=== PATIENT | male | born 1970 | race Caucasian/White ===

== ENCOUNTER 2017-07-10 07:51 | Outpatient (CLI) | payer BC ==
[~2017-07-10] VITALS: Ht 170.2 cm; Wt 72.7 kg
[2017-07-10] MEDS ORDERED: OXYCODONE HCL5 MG PO (08:18)
[2017-07-10] MEDS ORDERED: SYMBICORT 16010.2 GM INH (08:19)
[2017-07-10] MEDS ORDERED: VENTOLIN HFA18 GM INH (08:20)
[2017-07-10 08:37] VITALS: BP 121/78; Ht 170.2 cm; Wt 72.7 kg
[2017-07-10 08:43] LABS: BASOPHILS 0.4 % (0-2); EOSINOPHILS 2.5 % (0-7); HEMATOCRIT 40.4 % (42.0-54.0); HEMOGLOBIN 13.9 g/dL (13.5-17.5); IMMATURE GRANULOCYTES 0.2 % (0-5); LYMPHOCYTES 46.4 % (15-50); MCH 30.2 pg (26.0-34.0); MCHC 34.4 g/dL (31.0-37.0); MCV 87.8 fL (80.0-100.0); MEAN PLATELET VOLUME 10.3 fL (7.4-10.4); MONOCYTES 4.6 % (2-11); NEUTROPHILS 45.9 % (40-80); PLATELET COUNT 208 10x3/uL (130-400); RDW 13.8 % (11.5-14.5)
[2017-07-10 08:56] LABS: APTT 25.2 SECONDS (22.8-39.4); INR 0.89 (0.85-1.17); PROTIME 11.9 SECONDS (11.6-15.0)
[2017-07-10 08:58] LABS: CALC OSMOLALITY 274 mosm/kg (275-300); CALCIUM 8.7 mg/dL (8.5-10.1); CARBON DIOXIDE 27.8 mmol/L (21.0-32.0); CHLORIDE - SERUM 101 mmol/L (98-107); CREATININE - SERUM 0.7 mg/dL (0.6-1.3); GLUCOSE 93 mg/dL (74-106); POTASSIUM - SERUM 4.3 mmol/L (3.5-5.1); SODIUM 137 mmol/L (136-145); UREA NITROGEN 15 mg/dL (7-18); eGFR NON AFRICAN AMERICAN > 90 mL/min (90-120)
--- NOTE | 2017-07-10 20:12 | NUR ---
1140--ALL VITAL SIGNS CHARTED ON POST PROCEDURE VITAL SIGN SHEET ON CHART. KHUSHBU GUADARRAMA
--- NOTE | 2017-07-10 20:12 | NUR ---
1558--PERCOCET 10/325MG GIVEN PO FOR PAIN. KHUSHBU RN
--- NOTE | 2017-07-10 20:13 | NUR ---
1615--IV DC'D, PT UP TO DRESS AT THIS TIME. KHUSHBU GUADARRAMA 1630--DISCHARGE INSTRUCTIONS GIVEN, PT VERBALIZES UNDERSTANDING. PT OFF UNIT VIA WC. KHUSHBU GUADARRAMA
== END 2017-07-10 16:30 | disposition home or self-care (01) ==
LOC: D.OPS 07:51 → D.RAD 10:00 → D.SP 10:00 → D.RAD 10:30 → D.OPS 16:30
PROVIDERS: Radiology Diagnostic Radiology
DX: C64.2 Malignant neoplasm of left kidney, except renal pelvis (principal); Z01.812 Encounter for preprocedural laboratory examination

== ENCOUNTER 2017-12-14 11:10 | Outpatient (CLI) | payer BC ==
[~2017-12-14] VITALS: Ht 170.2 cm; Wt 75.0 kg
--- NOTE | ~2017-12-14 | HEMODYNAMI ---
PATIENT:TIANA MURRIETA MEDICAL RECORD: [id number] : 68 LOCATION:[facility] ADMISSION DATE: 12/14/17 Generatedon:12/14/201712:50 Patient name: TIANA MURRIETA Patient #: [id number] SSN: : 1 Date of study: 12/14/2017 Page: Of Hemodynamic Procedure Report Patient Data Patient Demographics Procedure consent was obtained First Name: TIANA Gender: Male Last Name: : 1970 [facility] Initial: O Age: 47 year(s) Patient #: [id number] Race: Unknown Additional ID: [id number] Contact details [address]: [address] [place] [address] State: [place] City: [place] Zip code: [address] Admission Admission Data Admission Date: 12/14/2017 Admission Time: 11:10 Lab Results Lab Result Date: 12/14/2017 Lab Result Time: 0:00 Biochemistry Name Units Result Min Max BUN mg/dl 19 --(----)*- 7 18 Creatinine mg/dl 0.8 --(-*--)-- 0.6 1.3 CBC Name Units Result Min Max Hemoglobin g/dl 16.1 --(--*-)-- 13.5 17.5 Procedure Procedure Types Cath Procedure Diagnostic Procedure [facility] w/Coronaries Miscellaneous Procedures Moderate Sedation up to 30 minutes Procedure Description Procedure Date Procedure Date: 12/14/2017 Procedure Start Time: 12:31 Procedure End Time: 12:44 Procedure Staff Name Function Jasmeet Benito MD Performing Physician Kaela Esteban RT Monitor Tiffanie Parikh RT Scrub Navid Joya RN Nurse Rafael Mckeon RN Admissions Assistant Procedure Data Cath Procedure Fluoroscopy Diagnostic fluoroscopy Total fluoroscopy Time: 2 time: 2 min min Diagnostic fluoroscopy Total fluoroscopy dose: 376 dose: 376 mGy mGy Contrast Material Contrast Material Type Amount (ml) Isovue 300 64 Entry Location Entry Primary Successful Side Size Upsize Upsize Entry Closure Succes sful Closure Location (Fr) 1 (Fr) 2 (Fr) Remarks Device Remarks Femoral Right 5 Fr Exoseal artery Estimated blood loss: 5 ml Diagnostic catheters Device Type Used For End Catheter Placement MULTIPACK JL 4.0 5Fr Multi-vessel catheter Angiography MULTIPACK 3DRC 5Fr Right Coronary catheter Angiography MULTIPACK Pigtail 5 Fr LV Angiography catheter Procedure Complications No complications Procedure Medications Medication Administration Route Dosage Oxygen NC 2 l/min Lidocaine 2% added to field 20 Heparin Flush Bag added to field 2 bags (1000units/500ml NS) 0.9% NaCl I.V. 100 ml/hr Pepcid I.V. 20 mg Versed I.V. 2 mg Fentanyl I.V. 100 mcg Versed I.V. 1 mg Fentanyl I.V. 50 mcg Versed I.V. 1 mg Fentanyl I.V. 50 mcg Hemodynamics Rest HGB: 16.1 (g/dl) Heart Rate: 55 (bpm) Pressure Samples Time Site Value (mmHg) Purpose Heart Use Rate(bpm) 12:41 LV 120/4,18 Snapshot 68 12:42 AO 125/68(94) Pullback 67 12:42 LV 129/8,28 Pullback 67 Gradients Valve Time Site 1 Site 2 Mean SEP/DFP Peak To Heart Use (mmHg) (sec/min) Peak Rate (mmHg) (bpm) Aortic 12:42 LV AO 8 17 4 67 129/8,28 125/68(94) Calculations Valve P-P Mean Valve Index Valve Source Name Gradient Area Flow (cm2) Aortic 4 8 4 8 Snapshots Pre Cath Intra NCS Post Cath Vital Signs Time Heart Resp SPO2 etCO2 NIBP (mmHg) Rhythm Pain Sedation Rate (ipm) (%) (mmHg) Status Level (bpm) 12:09:46 66 16 98 0 134/81(114) NSR 0 (11) 10(A) , No pain 12:14:33 62 17 100 0 123/68(88) NSR 0 (11) 10(A) , No pain 12:19:20 61 17 100 0 120/64(80) NSR 0 (11) 10(A) , No pain 12:24:43 74 15 100 0 120/76(93) NSR 0 (11) 10(A) , No pain 12:29:30 66 16 96 0 115/62(83) NSR 0 (11) 10(A) , No pain 12:34:13 65 15 96 0 120/70(92) NSR 0 (11) 10(A) , No pain 12:39:00 66 17 96 0 118/68(100) NSR 0 (11) 9(A) , No pain 12:43:44 66 17 95 0 122/62(94) NSR 0 (11) 10(A) , No pain Medications Time Medication Route Dose Verified Delivered Reason Notes Effe ctiveness by by 12:19:38 Oxygen NC 2 Jasmeet Buffie used for l/min Thong Joya RN procedure 12:20:30 Lidocaine 2% added 20ml Jasmeet Jasmeet for local to vial Thong Benito MD anesthetic field 12:20:36 Heparin Flush added 2 Jamseet Jasmeet used for Bag to bags Thong Benito MD procedure (1000units/500ml field NS) 12:20:45 0.9% NaCl I.V. 100 Jasmeet Buffie Per ml/hr Thong Joya RN physician 12:27:59 Pepcid I.V. 20 mg Jasmeet Buffie Per Thong Joya RN physician 12:30:26 Versed I.V. 2 mg Jasmeet Buffie for Thong Joya RN sedation 12:30:32 Fentanyl I.V. 100 Jasmeet Buffie for mcg Thong Joya RN sedation 12:36:04 Versed I.V. 1 mg Jasmeet Buffie for Thong Joya RN sedation 12:36:09 Fentanyl I.V. 50 Jasmeet Buffie for laci Joya RN sedation 12:38:55 Versed I.V. 1 mg Jasmeet Buffie for Thong Joya RN sedation 12:38:59 Fentanyl I.V. 50 Jasmeet Buffie for mcg Thong Joya RN sedation Procedure Log Time Note 11:59:34 Rafael Mckeon RN sent for patient. Start room use. 11:59:35 Time tracking: Regular hours 11:59:38 Plan of Care:Hemodynamics will remain stable., Cardiac rhythm will remain stable., Comfort level will be maintained., Respiratory function will remain adequate., Patient/ family verbilizes understanding of procedure., Procedure tolerated without complication., Recovers from procedure without complications.. 12:05:40 Patient received from Pre/Post Procedure Room to [facility] 2 Alert and oriented. Tansferred to table in Supine position. 12:05:41 Warm blankets applied, and max hugger turned on for patient comfort. 12:05:42 Correct patient and procedure confirmed by team. 12:05:47 Signed procedure consent form obtained from patient. 12:06:02 ECG and BP/O2 sat monitors applied to patient. 12:08:33 Vital chart was started 12:10:22 Full Disclosure recording started 12:11:55 Baseline sample Acquired. 12:11:59 Rhythm: sinus rhythm 12:13:23 H&P Date Dictated: 12/11/2017 Within 30 days and on chart., H&P Addendum completed by physician on day of procedure. (MUST COMPLETE FOR ALL OUTPATIENTS). 12:14:13 Pre-procedure instructions explained to patient. 12:14:15 Pre-op teaching completed and patient verbalized understanding. 12:14:16 Family in waiting room. 12:14:17 Patient NPO since Midnight. 12:14:20 Is the patient allergic to Iodine/contrast media? No. 12:14:22 Was the patient premedicated? No 12:14:23 Is patient on blood thinner?No 12:14:25 Patient diabetic? No. 12:14:28 Previous problem with sedation/anesthesia? No ? 12:14:30 Snore? Yes 12:14:31 Sleep apnea? No 12:14:32 Deviated septum? No 12:14:32 Opens mouth fully? Yes 12:14:33 Sticks out tongue? Yes 12:14:37 Airway obstruction? Yes copd 12:14:41 Dentures? Yes in tight 12:14:46 Pre procedure: right dorsailis pedis pulse 2+ Normal; easily identifiable; not easily obliterated 12:14:48 Pre procedure: left dorsailis pedis pulse 2+ Normal; easily identifiable; not easily obliterated 12:14:50 Patient pain scale 0/10 ?. 12:14:55 IV patent on arrival in left forearm with 0.9% NaCl at [facility]. 12:16:21 Lab Result : BUN 19 mg/dl 12:16:21 Lab Result : Hemoglobin 16.1 g/dl 12:16:21 Lab Result : Creatinine 0.8 mg/dl 12:16:25 Lab results completed and on chart. 12:16:28 Right groin area was prepped with chlora-prep and draped in sterile fashion 12:16:29 Alarms reviewed by R. N. 12:16:30 Sharps counted by scrub and verified by R.N. 12:19:38 Oxygen 2 l/min NC was administered by Navid Joya RN; used for procedure; 12:20:30 Lidocaine 2% 20ml vial added to field was administered by Jasmeet Benito MD; for local anesthetic; 12:20:36 Heparin Flush Bag (1000units/500ml NS) 2 bags added to field was administered by Jasmeet Benito MD; used for procedure; 12:20:45 0.9% NaCl 100 ml/hr I.V. was administered by Navid Joya RN; Per physician; 12:23:12 Zero performed for pressure channel P1 12:23:18 Zero performed for pressure channel P1 12::25 Zero performed for pressure channel P1 12::40 Physician arrived 12::41 --------ALL STOP TIME OUT------ 12::41 Final Timeout: patient, procedure, and site verified with staff and physician. All members of the team are in agreement. 12:23:43 Right groin site verified by team. 12:23:46 Physical assessment completed. ASA score P 2 - A patient with mild systemic disease as per Jasmeet Benito MD. 12:23:50 Sedation plan: IV Moderate Sedation Medication:Versed, Fentanyl 12:24:06 Use device set Femoral Dx 12:24:07 ACIST Syringe (79938) opened to sterile field. 12:24:08 Bag Decanter (2002S) opened to sterile field. 12:24:08 Medline Cath Pack ([id number]) opened to sterile field. 12:24:09 SHEATH 5FR Romney ([id number]) opened to sterile field. 12:24:11 ACIST Hand Control (84064) opened to sterile field. 12:24:12 ACIST Manifold (53097) opened to sterile field. 12:24:12 DIAGNOSTIC Multipack 5Fr catheter set (CX7988) opened to sterile field. 12:24:13 Tegaderm 4 x 4 (1626W) opened to sterile field. 12:27:00 Zero performed for pressure channel P1 12:27:59 Pepcid 20 mg I.V. was administered by Navid Joya RN; Per physician; 12:30:26 Versed 2 mg I.V. was administered by Navid Joya RN; for sedation; 12:30:32 Fentanyl 100 mcg I.V. was administered by Navid Joya RN; for sedation; 12:31:09 Procedure started. 12:31:12 Local anesthetic to right femoral artery with Lidocaine 2% by Jasmeet Benito MD.INITIAL ACCESS ONLY 12:31:22 A 5 Fr sheath was inserted into the Right Femoral artery 12:31:51 Baseline sample Acquired. 12:36:04 Versed 1 mg I.V. was administered by Navid Joya RN; for sedation; 12:36:09 Fentanyl 50 mcg I.V. was administered by Navid Joya RN; for sedation; 12:36:24 A MULTIPACK JL 4.0 5Fr catheter was advanced over the wire and used for Multi-vessel Angiography. 12:36:50 DIAGNOSTIC WIRE .035 260cm J wire (838264) opened to sterile field. 12:37:48 LCA angiography performed. 12:37:51 Injector settings: Ml/sec: 3, Volume: 6, 12:38:50 Catheter removed. 12:38:55 Versed 1 mg I.V. was administered by Navid Joya RN; for sedation; 12:38:57 A MULTIPACK 3DRC 5Fr catheter was advanced over the wire and used for Right Coronary Angiography. 12:38:59 Fentanyl 50 mcg I.V. was administered by Navid Joya RN; for sedation; 12:39:48 RCA angiography performed. 12:39:51 Injector settings: Ml/sec: 3, Volume: 6, 12:40:08 Catheter removed. 12:40:27 A MULTIPACK Pigtail 5 Fr catheter was advanced over the wire and used for LV Angiography. 12:41:45 LV hemodynamics recorded. 12:41:46 LV gram done using [place] 12:41:49 Injector settings: Ml/sec: 5, Volume: 15, 12:42:38 EF : 50 % 12:42:53 Catheter removed. 12:42:56 EXOSEAL 5Fr (EX500) opened to sterile field. 12:43:17 Sheath removed intact; hemostasis achieved with Exoseal to the Right Femoral artery. 12:43:21 Procedure ended.(Physican Out) 12:43:41 Fluoroscopy time 02.00 minutes. 12:43:47 Fluoroscopy dose: 376 mGy 12:43:47 Flurop Dose total: 376 12:43:53 Contrast amount:Isovue 300 64ml. 12:43:54 Sharps counted by scrub and verified by R.N. 12:43:56 Insertion/operative site no bleeding no hematoma. 12:43:59 Post-op/insertion site Right Femoral artery dressed using a 4 x 4 and Tegaderm. 12:44:01 Post right femoral artery:stable 12:44:03 Post Procedure Pulses reassessed and unchanged 12:44:07 Post procedure rhythm: unchanged. 12:44:11 Estimated blood loss: 5 ml 12:44:12 Post procedure instruction explained to patient.Patient verbalizes understanding. 12:44:13 Patient needs reinforcement of post procedure teaching. 12:44:33 Procedure type changed to Cath procedure, Diagnostic procedure, LHC, LHC w/Coronaries, Miscellaneous Procedures, Moderate Sedation up to 30 minutes 12:44:36 Procedure and supply charges have been captured, reviewed, submitted and are correct. 12:44:41 Procedure Complication : No complications 12:44:43 Vital chart was stopped 12:44:44 See physician's report for complete and final results. 12:44:46 Report given to Pre/Post Procedure Room. 12:44:53 Patient transfered to Pre/Post Procedure Room with Stretcher. 12:44:56 Procedure ended. 12:44:56 Full Disclosure recording stopped 12:45:06 End room use (Document Last) Device Usage Item Name Manufacture Quantity Catalog Hospital Part Current Minimal L ot# / Number Charge Number Stock Stock Serial# Code ACIST Acist 1 90832 [id number] 698415 224534 20 Syringe Medical (28731) Systems Inc Bag Microtek 1 772594 39441 969902 5 Decanter Medical Inc. () Medline Cardinal 1 [id number] 891243 51420 574497 5 Cath Pack Health ([id number]) SHEATH 5FR Terumo 1 DFI659 760532 736604 503977 40 Romney (ELE305) ACIST Hand Acist 1 73550 012288 341481 386399 5 Control Medical (16482) Systems Inc ACIST Acist 1 17985 276820 443806 564112 5 Manifold Medical (87796) Systems Inc DIAGNOSTIC Cardinal 1 GF6924 929609 20790 898819 30 Multipack Health 5Fr catheter set (NE4236) Tegaderm 4 3M 1 1626W 812322 983274 757113 5 x 4 (1626W) MULTIPACK Cardinal 1 718778 5 JL 4.[address] Health catheter [address]NOSTIC [address] [facility] 1 012177 351212 994269 425167 30 WIRE .035 260cm J wire (255359) MULTIPACK Cardinal 1 944009 5 3DRC 5Fr Health catheter MULTIPACK Cardinal 1 614377 5 Pigtail 5 Health Fr catheter EXOSEAL 5Fr Cardinal 1 EX500 111151 879115 306073 10 (EX500) Health Signature Audit [place] Stage Time Signature Unsigned Intra-Procedure 12/14/2017 Kaela Esteban 12:50:25 PM RT(R) Signatures Monitor : Kaela Esteban RT Signature : Date : Time : [id number] [place] [address]
[~2017-12-14 11:10] MED LIST: OXYCODONE HCL5 MG PO; SYMBICORT 16010.2 GM INH; VENTOLIN HFA18 GM INH
[2017-12-14] MEDS ORDERED: ATIVAN0.5 MG PO (11:22)
[2017-12-14 11:35] VITALS: BP 122/66; Ht 170.2 cm; Wt 75.0 kg
[2017-12-14 11:51] LABS: BASOPHILS 0.3 % (0-2); EOSINOPHILS 4.7 % (0-7); HEMATOCRIT 47.5 % (42.0-54.0); HEMOGLOBIN 16.1 g/dL (13.5-17.5); IMMATURE GRANULOCYTES 0.7 % (0-5); LYMPHOCYTES 40.2 % (15-50); MCH 30.6 pg (26.0-34.0); MCHC 33.9 g/dL (31.0-37.0); MCV 90.3 fL (80.0-100.0); MEAN PLATELET VOLUME 9.9 fL (7.4-10.4); MONOCYTES 5.2 % (2-11); NEUTROPHILS 48.9 % (40-80); PLATELET COUNT 245 10x3/uL (130-400); RBC 5.26 10x6/uL (4.20-6.10); RDW 12.9 % (11.5-14.5); WBC 7.5 10x3/uL (4.8-10.8)
[2017-12-14 12:10] LABS: CALC OSMOLALITY 277 mosm/kg (275-300); CALCIUM 9.7 mg/dL (8.5-10.1); CARBON DIOXIDE 31.5 mmol/L (21.0-32.0); CHLORIDE - SERUM 100 mmol/L (98-107); CREATININE - SERUM 0.8 mg/dL (0.6-1.3); GLUCOSE 106 mg/dL (74-106); POTASSIUM - SERUM 4.4 mmol/L (3.5-5.1); SODIUM 138 mmol/L (136-145); UREA NITROGEN 19 mg/dL (7-18); eGFR NON AFRICAN AMERICAN > 90 mL/min (90-120)
== END 2017-12-14 15:05 | disposition home or self-care (01) ==
LOC: D.CATH 11:10
PROVIDERS: Internal Medicine Cardiovascular Disease
DX: I20.0 Unstable angina (principal); Z82.49 Family history of ischemic heart disease and other diseases of the circulatory system; R94.31 Abnormal electrocardiogram [ECG] [EKG]; Z01.812 Encounter for preprocedural laboratory examination

== ENCOUNTER → 2018-01-28 09:10 | Outpatient (CLI) | payer BC ==
[2017-12-14 11:35] VITALS: BMI 25.9
[~2018-01-28 09:10] MED LIST changes: +ASPIRIN81 MG PO; +ATIVAN0.5 MG PO; +PLAVIX75 MG PO; +PRAVACHOL20 MG PO; +PROVENTIL HFA6.7 GM INH
== END | disposition home or self-care (01) ==
LOC: D.CT 09:10
DX: N28.89 Other specified disorders of kidney and ureter (principal)

== ENCOUNTER 2018-02-09 15:32 | Outpatient (CLI) | payer BC ==
[~2018-02-09] VITALS: Ht 170.2 cm; Wt 70.9 kg
--- NOTE | ~2018-02-09 | HEMODYNAMI ---
PATIENT:TIANA MURRIETA MEDICAL RECORD: [id number] : 68 LOCATION:[facility].211 ADMISSION DATE: 02/09/18 Generatedon:02/10/201812:39 Patient name: TIANA MURRIETA Patient #: [id number] SSN: : 1 Date of study: 02/10/2018 Page: Of Hemodynamic Procedure Report Patient Data Patient Demographics Procedure consent was obtained First Name: TIANA Gender: Male Last Name: : 1970 [facility] Initial: O Age: 47 year(s) Patient #: [id number] Race: Additional ID: [id number] Contact details Address: [address] [place] [address] State: [place] City: [place] Zip code: [address] Admission Admission Data Admission Date: 02/09/2018 Admission Time: 19:52 Room #: [facility] Procedure Procedure Types Cath Procedure Diagnostic Procedure LHC [facility] w/Coronaries Sedation Charges Moderate Sedation up to 15 minutes PCI Procedure Coronary Stent Coronary Stent Initial Procedure Description Procedure Date Procedure Date: 02/10/2018 Procedure Start Time: 12:15 Procedure End Time: 12:38 Procedure Staff Name Function Lamine Hartman MD Performing Physician Navid Joya RN Nurse Vinayak Carbajal RT Monitor Kaela Esteban RT Scrub Procedure Data Cath Procedure Fluoroscopy Diagnostic fluoroscopy Total fluoroscopy Time: 2.7 time: 2.7 min min Diagnostic fluoroscopy Total fluoroscopy dose: 395 dose: 395 mGy mGy Contrast Material Contrast Material Type Amount (ml) Isovue 300 79 Entry Location Entry Primary Successful Side Size Upsize Upsize Entry Closure Succes sful Closure Location (Fr) 1 (Fr) 2 (Fr) Remarks Device Remarks Femoral Right 6 Fr Exoseal artery Short Estimated blood loss: 10 ml Diagnostic catheters Device Type Used For End Catheter Placement DIAGNOSTIC Pigtail 5Fr Procedure catheter ([id number]) DIAGNOSTIC 3DRC 5Fr Procedure catheter ([id number]) Procedure Complications No complications Procedure Medications Medication Administration Route Dosage Oxygen NC 2 l/min Lidocaine 2% added to field 20 Heparin Flush Bag added to field 2 bags (1000units/500ml NS) 0.9% NaCl I.V. 100 ml/hr Versed I.V. 2 mg Fentanyl I.V. 100 mcg Versed I.V. 2 mg Fentanyl I.V. 100 mcg Versed I.V. 2 mg Fentanyl I.V. 100 mcg Heparin Bolus I.V. 4000 units Plavix P.O. 75 mg Hemodynamics Rest Heart Rate: 46 (bpm) Snapshots Pre Cath Intra NCS Post Cath Vital Signs Time Heart Resp SPO2 etCO2 NIBP (mmHg) Rhythm Pain Sedation Rate (ipm) (%) (mmHg) Status Level (bpm) 12:03:02 50 22 99 0 128/78(105) NSR 0 (11) 10(A) , No pain 12:07:18 56 19 97 25.6 124/53(57) NSR 0 (11) 10(A) , No pain 12:11:28 53 22 97 38.4 109/64(83) NSR 0 (11) 10(A) , No pain 12:15:47 53 22 95 0 119/62(96) NSR 0 (11) 10(A) , No pain 12:20:58 46 18 95 0 112/60(80) NSR 0 (11) 9(A) , No pain 12:25:08 54 18 95 36.9 109/59(79) NSR 0 (11) 9(A) , No pain 12:29:18 54 19 95 30.9 113/59(78) NSR 0 (11) 9(A) , No pain 12:33:29 55 14 95 32.4 118/55(74) NSR 0 (11) 10(A) , No pain 12:37:37 59 16 96 33.1 119/67(86) NSR 0 (11) 10(A) , No pain Medications Time Medication Route Dose Verified Delivered Reason Notes Effectiveness by by 12:09:46 Oxygen NC 2 Lamine Shoemaker used for l/min Minnie Joya motor coach bus driver 12:09:52 Lidocaine 2% added 20ml Lamine Raman for local to vial Minnie Hartman MD anesthetic field 12:09:58 Heparin Flush added 2 Lamine Raman used for Bag to bags Minnie Hartman MD procedure (1000units/500ml field NS) 12:10:06 0.9% NaCl I.V. 100 Lamine Buffie Per physician ml/hr Minnie Joya RN 12:13:31 Versed I.V. 2 mg Lamine Buffie for sedation Minnie Joya RN 12:13:36 Fentanyl I.V. 100 Lamine Buffie for sedation mcg Minnie Joya RN 12:17:58 Versed I.V. 2 mg Lamine Buffie for sedation Minnie Joya RN 12:18:02 Fentanyl I.V. 100 Lamine Buffie for sedation mcg Minnie Joya RN 12:21:41 Versed I.V. 2 mg Lamine Buffie for sedation Minnie Joya RN 12:21:47 Fentanyl I.V. 100 Lamine Buffie for sedation mcg Minnie Joya RN 12:24:22 Heparin Bolus I.V. 4000 Lamine Buffie for verifi ed units Minnie Joya RN anticoagulation with dr hartman 12:31:38 Plavix P.O. 75 mg Lamine Buffie for Minnie Joya RN antiplatelet therapy Procedure Log Time Note 10:50:09 Informed consent obtained and on chart 10:50:14 Diagnostic Cath Status : Elective 10:50:32 Kaela Esteban RT(R) sent for patient. Start room use. 10:50:33 Time tracking: Regular hours 10:50:37 Plan of Care:Hemodynamics will remain stable., Cardiac rhythm will remain stable., Comfort level will be maintained., Respiratory function will remain adequate., Patient/ family verbilizes understanding of procedure., Procedure tolerated without complication., Recovers from procedure without complications.. 11:59:39 Patient received from Med II to CCL 2 Alert and oriented. Tansferred to table in Supine position. 11:59:40 Warm blankets applied, and max hugger turned on for patient comfort. 11:59:41 Correct patient and procedure confirmed by team. 11:59:42 ECG and BP/O2 sat monitors applied to patient. 12:01:54 Vital chart was started 12:01:55 Baseline sample Acquired. 12:01:59 Rhythm: sinus bradycardia 12:02:01 Full Disclosure recording started 12:02:04 H&P Date Dictated: 02/10/2018 New H&P dictated by physician.. 12:02:06 Pre-procedure instructions explained to patient. 12:02:06 Pre-op teaching completed and patient verbalized understanding. 12:02:08 Family in patients room. 12:02:10 Patient NPO since Midnight. 12:02:17 Is the patient allergic to Iodine/contrast media? No. 12:02:19 Was the patient premedicated? No 12:02:24 Is patient on blood thinner?Yes 12:02:25 Patient diabetic? No. 12:02:28 Previous problem with sedation/anesthesia? No ? 12:02:30 Snore? Yes 12:02:31 Sleep apnea? No 12:02:32 Deviated septum? No 12:02:33 Opens mouth fully? Yes 12:02:33 Sticks out tongue? Yes 12:02:35 Airway obstruction? Yes asthma 12:02:38 Dentures? No ? 12:02:41 Pre procedure: right dorsailis pedis pulse 2+ Normal; easily identifiable; not easily obliterated 12:02:44 Pre procedure: left dorsailis pedis pulse 2+ Normal; easily identifiable; not easily obliterated 12:02:47 Patient pain scale 0/10 ?. 12:02:54 IV patent on arrival in left wrist with 0.9% NaCl at O. 12:02:56 Lab results completed and on chart. 12:03:00 Right groin area was prepped with chlora-prep and draped in sterile fashion 12:03:01 Alarms reviewed by R. N. 12:03:01 Sharps counted by scrub and verified by R.N. 12:08:02 Use device set Femoral Dx 12:08:03 ACIST Syringe (01349) opened to sterile field. 12:08:03 Bag Decanter (2002S) opened to sterile field. 12:08:03 Medline Cath Pack ([id number]) opened to sterile field. 12:08:04 ACIST Hand Control (36554) opened to sterile field. 12:08:05 ACIST Manifold (59039) opened to sterile field. 12:08:07 SHEATH 5FR Edson (ZIM077) opened to sterile field. 12:08:07 DIAGNOSTIC WIRE .035 260cm J wire (163155) opened to sterile field. 12:08:09 Tegaderm 4 x 4 (1626W) opened to sterile field. 12:08:09 PERCUTANEOUS ENTRY 19GA needle opened to sterile field. 12:09:46 Oxygen 2 l/min NC was administered by Navid Joya RN; used for procedure; 12:09:52 Lidocaine 2% 20ml vial added to field was administered by Lamine Hartman MD; for local anesthetic; 12:09:58 Heparin Flush Bag (1000units/500ml NS) 2 bags added to field was administered by Lamine Hartman MD; used for procedure; 12:10:06 0.9% NaCl 100 ml/hr I.V. was administered by Navid Joya RN; Per physician; 12:12:10 --------ALL STOP TIME OUT------ 12:12:10 Final Timeout: patient, procedure, and site verified with staff and physician. All members of the team are in agreement. 12:12:27 Right groin site verified by team. 12:12:30 Physical assessment completed. ASA score P 2 - A patient with mild systemic disease as per Lamine Hartman MD. 12:12:34 Sedation plan: IV Moderate Sedation Medication:Versed, Fentanyl 12:13:31 Versed 2 mg I.V. was administered by Navid Joya RN; for sedation; 12:13:36 Fentanyl 100 mcg I.V. was administered by Navid Joya RN; for sedation; 12:15:50 Procedure started. 12:15:55 Local anesthetic to right femoral artery with Lidocaine 2% by Lamine Hartman MD.INITIAL ACCESS ONLY 12:17:58 Versed 2 mg I.V. was administered by Navid Joya RN; for sedation; 12:18:02 Fentanyl 100 mcg I.V. was administered by Navid Joya RN; for sedation; 12:18:33 GUIDE 6FR XBLAD 3.5 catheter ([id number]) opened to sterile field. 12:18:47 A 6 Fr Short sheath was inserted into the Right Femoral artery 12:19:19 Zero performed for pressure channel P1 12:19:42 A DIAGNOSTIC Pigtail 5Fr catheter ([id number]) was advanced over the wire and used for Procedure. 12:19:45 LV gram done using SCHOFIELD 12:19:47 Injector settings: Ml/sec: 10, Volume: 20, 12:20:34 EF : 55 % 12:20:49 Catheter removed. 12:21:41 Versed 2 mg I.V. was administered by Navid Joya RN; for sedation; 12::42 A DIAGNOSTIC 3DRC 5Fr catheter ([id number]) was advanced over the wire and used for Procedure. 12::47 Fentanyl 100 mcg I.V. was administered by Navid Joya RN; for sedation; 12::06 RCA angiography performed. 12::16 Catheter removed. 12::34 6 Fr xblad 3.5 guide catheter was inserted over the wire 12:: Heparin Bolus 4000 units I.V. was administered by Navid Joya RN; for anticoagulation; verified with dr hartman 12:25:55 LCA angiography performed. 12:: choice pt wire advanced. 12:: Wire advanced across lesion. 12::34 Inflation Number: 1 A INTEGRITY RX 2.5 x 14 stent ([id number]) was prepped and advanced across the Mid LAD. The stent was deployed at 13 SADIQ for 0:10 (min:sec). 12::39 Stent catheter was removed intact over wire. ::34 Inflation Number: 1 A INTEGRITY RX 3.0 x 18 stent ([id number]) was prepped and advanced across the Prox LAD. The stent was deployed at 15 SADIQ for 0:10 (min:sec). 12:30:36 Stent catheter was removed intact over wire. 12::39 Wire removed. 12:30:40 Guide catheter removed. 12:30:50 EXOSEAL 6Fr (EX600) opened to sterile field. 12::06 Sheath removed intact; hemostasis achieved with Exoseal to the Right Femoral artery. 12::32 Procedure ended.(Physican Out) :: Plavix 75 mg P.O. was administered by Navid Joya RN; for antiplatelet therapy; ::16 Fluoroscopy time 02.70 minutes. 12:34:30 Flurop Dose total: 395 12::30 Fluoroscopy dose: 395 mGy 12::34 Contrast amount:Isovue 300 79ml. 12::35 Sharps counted by scrub and verified by R.N. 12::35 Insertion/operative site no bleeding no hematoma. 12::38 Post-op/insertion site Right Femoral artery dressed using a 4 x 4 and Tegaderm. 12:34:41 Post right femoral artery:stable, soft, clean and dry 12:34:54 Post Procedure Pulses reassessed and unchanged 12:34:58 Post-procedure physical assessment completed. ASA score P 2 - A patient with mild systemic disease as per Lamine Hartman MD. 12:35:01 Post procedure rhythm: unchanged. 12:35:03 Estimated blood loss: 10 ml 12:35:05 Post procedure instruction explained to patient.Patient verbalizes understanding. 12:35:05 Patient needs reinforcement of post procedure teaching. 12:35:26 Procedure type changed to Cath procedure, Diagnostic procedure, LHC, LHC w/Coronaries, Sedation Charges, Moderate Sedation up to 15 minutes, PCI procedure, Coronary Stent, Coronary Stent Initial 12:36:35 INFLATOR Merit BasixCompak (YC7173) opened to sterile field. 12:37:18 SHEATH 6FR Edson (IWB522) opened to sterile field. 12:37:42 IV Extension Set opened to sterile field. 12:38:00 Procedure and supply charges have been captured, reviewed, submitted and are correct. 12:38:03 Procedure Complication : No complications 12:38:05 Vital chart was stopped 12:38:05 See physician's report for complete and final results. 12:38:09 Report given to PCU. 12:38:11 Patient transfered to PCU with Stretcher. 12:38:14 Procedure ended. 12:38:14 Full Disclosure recording stopped 12:38:48 End room use (Document Last) Intervention Summary Intervention Notes Time ActionType Lesion and Equipment Action# Pressure Duration Attributes Used 12:26:34 Place stent Mid LAD INTEGRITY RX 1 13 00:10 2.5 x 14 stent ([id number]) 12:30:34 Place stent Prox LAD INTEGRITY RX 1 15 00:10 3.0 x 18 stent ([id number]) Device Usage Item Name Manufacture Quantity Catalog Hospital Part Current Minimal Lot# / Number Charge Number Stock Stock Serial# Code ACIST Acist 1 12498 857587 877233 975560 20 Syringe Medical (71933) Systems Inc Bag Decanter Microtek 1 589813 43135 079297 5 () Medical Inc. Medline Cath Cardinal 1 [id number] 837266 98451 927142 5 Pack Health ([id number]) ACIST Hand Acist 1 86706 905425 912343 909650 5 Control Medical (61306) Systems Inc ACIST Acist 1 09689 625019 121702 175483 5 [facility] Medical (27589) Systems Inc SHEATH 5FR Terumo 1 XTP076 411684 791918 251315 40 Edson (KYE596) DIAGNOSTIC [facility] 1 034861 818579 500887 325377 30 WIRE .035 260cm J wire (460879) Tegaderm 4 x 3M 1 1626W 830396 186260 852556 5 4 (1626W) PERCUTANEOUS [facility] 1 Z11944 089441 188719 5 ENTRY 19GA needle GUIDE 6FR Cardinal 1 19902443 537658 156136 126890 10 XBLAD 3.5 Health catheter ([id number]) DIAGNOSTIC Cardinal 1 459310V 269708 819051 000388 5 Pigtail 5Fr Health catheter (632637D) DIAGNOSTIC Cardinal 1 [id number] 382794 149155 971154 9 3DRC 5Fr Health catheter (910853H) INTEGRITY RX Medtronic 1 [id number] 967659 744305 915292 5 [id number] 2.5 x 14 stent ([id number]) INTEGRITY RX Medtronic 1 [id number] 120049 231407 719314 5 [id number] 3.0 x 18 stent ([id number]) EXOSEAL 6Fr Cardinal 1 EX600 291182 860300 949191 10 (EX600) Health INFLATOR [facility] 1 TG4634 698645 128025 750730 15 [facility] Medical BasixCompak (EO5084) SHEATH 6FR Terumo 1 OHN254 047152 204273 744543 40 Edson (EDW402) IV Extension Hospira 1 54571-75 004593 28107 068576 5 Set Signature Audit Thaxton Stage Time Signature Unsigned Intra-Procedure 02/10/2018 Vinayak Carbajal 12:39:28 PM RT(R) Signatures Monitor : Vinayak Carbajal RT Signature : Date : Time : [facility] [address] [place] [address]
--- NOTE | ~2018-02-09 | DS ---
PATIENT:TIANA MURRIETA :68 MEDICAL RECORD: [id number] DISCHARGE SUMMARY ADMISSION DATE: 02/09/18 DISCHARGE DATE: 02/10/18 DISCHARGE DIAGNOSES: 1. Unstable angina. 2. Coronary artery disease. 3. Percutaneous transluminal coronary angioplasty stent left anterior descending this admission. HOSPITAL COURSE: Mr. Murrieta presents with unstable angina, mild elevated troponin compatible with non-Q-wave myocardial infarction, underwent coronary angiography revealing critical disease of the LAD, underwent successful PTCA stent of the LAD, was discharged home with the addition of aspirin, Plavix, Pravachol to his medical regimen. No beta jamal was undertaken secondary to resting bradycardia, will follow up with [facility] in 1 month. TRANSINT:[id number] Voice Confirmation ID: [id number] DOCUMENT ID: [id number] VESTA STONE MD at 1202 CC: [id number] DICTATION DATE: 02/10/18 1233 MUSIC GRAPHER: 02/10/18 1351 DEP CLI 02/10/18 [id number] [place] [address]
--- NOTE | ~2018-02-09 | HP ---
PATIENT: TIANA MURRIETA MEDICAL RECORD: [id number] ACCOUNT: [id number] LOCATION:[facility] D.2117 : 68 ADMISSION DATE: 02/09/18 HISTORY AND PHYSICAL EXAMINATION DIAGNOSES: 1. Non-Q-wave myocardial infarction. 2. Coronary disease. 3. Hyperlipidemia. HISTORY: This is a gentleman who presents with recurrent chest pain. He presented with chest pain with an elevated troponin in November, underwent cardiac catheterization. No intervention was undertaken at that time. He has been having continued episodes of chest pain. He had relatively severe episode of chest pain today and presented to the Emergency Room. His troponin is up again. On reviewing the cath film, there are 2 areas of the left anterior descending that are at least 70% stenosed. REVIEW OF SYSTEMS: The patient reports easy bruising but reports no swollen glands. The patient reports no fever, no night sweats, no significant weight gain, no significant weight loss. No significant exercise tolerance. The patient reports no dry eyes, no irritation, no vision change. Patient reports no difficulty hearing and no ear pain. Patient reports no frequent nose bleeds or nose and sinus problems. Patient reports on arm pain on exertion. No shortness of breath while lying down. No history of heart murmur. Patient reports no cough, no wheezing or coughing up blood. Patient reports no abdominal pain, no vomiting. Normal appetite. No diarrhea and not vomiting blood. No nausea and no constipation. Patient reports no incontinence. No difficulty urinating. No hematuria. No increased frequency. Patient reports no muscle aches. No weakness, no arthralgias, no back pain. No swelling of the extremities. Patient reports no abnormal mole, no jaundice, no rashes. Reports no loss of consciousness. No weakness and no numbness. No seizures, dizziness, or headaches. The patient reports no depression, no sleep disturbance, feeling safe in a relationship and no alcohol abuse. Patient reports on fatigue. Reports no runny nose or sinus pressure. No itching, no hives, and no frequent sneezing. PHYSICAL EXAMINATION: GENERAL APPEARANCE: Well-nourished, well-developed, appears stated age. Level of distress, comfortable. PSYCHIATRIC: Mental status, alert, normal affect. Orientation, oriented to time, place and person. EYES: Lids and conjunctivae, noninjected. No discharge, no pallor. ENT: Lips, teeth, gums, normal dentition. Oropharynx, no cyanosis, no pallor. NECK: Carotid arteries, bilateral normal upstroke, no bruits, no thrills. JUGULAR VEINS: No jugular venous pressure or distention. CERVICAL LYMPH NODES: Nontender, nonenlarged. THYROID: Not enlarged. Nontender. No nodules. LUNGS: Respiratory effort, unlabored. CHEST: Normal curvature. No thoracic deformity. No chest wall tenderness. Percussion, resonant. Auscultation, clear. No wheezes, no rales, no rhonchi. CARDIOVASCULAR: Precordial exam, nondisplaced. No heaves or pericardial thrills. Rate and rhythm, regular. Heart sounds, normal S1, normal S2. No S3, no gallop, no rub. Systolic murmur, not heard. Diastolic murmur, not heard. EXTREMITIES: No cyanosis, no edema. Peripheral pulses, full and equal in all HISTORY AND PHYSICAL [id number] LIT,TIANA O extremities, except as noted. No bruits appreciated. ABDOMEN: Soft, nondistended. Normal aorta. No bruit. Nontender. No masses. Liver, nontender, no hepatomegaly. Spleen, nontender, no splenomegaly. MUSCULOSKELETAL: No joint tenderness. No joint swelling. No erythema. NEUROLOGICAL: Normal gait, normal strength, normal tone. SKIN: Warm and dry. OVERALL IMPRESSION: Chest pain with elevated troponin. We will load with Plavix. Proceed with coronary angiography in the a.m. Further care depends upon the findings of the angiography. TRANSINT:[id number] Voice Confirmation ID: [id number] DOCUMENT ID: [id number] VESTA STONE MD at 1235 CC: [id number] DICTATION DATE: 02/09/181932 PLUCK TRIMMER: 02/10/18 0101 ADM IN [facility] [address] [place] [address]
--- NOTE | ~2018-02-09 | OP ---
PATIENT NAME: TIANA MURRIETA MEDICAL RECORD: [id number] :68 LOCATION:D.CAT ADMISSION DATE: SURGEON: VESTA STONE MD DATE OF OPERATION: 02/10/2018 PROCEDURES: 1. PTCA stent LAD. 2. Left heart catheterization. 3. Selective coronary angiography. 4. Left ventriculogram. INDICATION: Non-Q-wave myocardial infarction. DESCRIPTION OF PROCEDURE: After informed consent was obtained and after a detailed explanation of the risks, benefits as well as alternative therapies, the patient elected to proceed with angiogram and angioplasty. The right femoral area was prepped and draped in normal sterile fashion. The right femoral artery was cannulated via modified Seldinger technique with placement of 6-Sinhala sheath. All catheters exchanged through this sheath. FINDINGS: The left ventriculogram was performed in standard 30-degree SCHOFIELD view, reveals good cardiac wall motion throughout all segments. Overall ejection fraction estimated at 60%. SELECTIVE CORONARY ANGIOGRAPHY: 1. Left main showed no significant angiographic disease. 2. Left anterior descending has 80% stenosis followed by a 99% stenosis. 3. The left circumflex has moderate irregularities, but no flow-limiting stenosis. 4. Right coronary artery has moderate irregularities, but no flow-limiting stenosis. PTCA STENT OF THE LAD: The stent used were 2.5 x 14 and 3.0 x 15, both Integrity stents. Result was 0% residual stenosis. OVERALL IMPRESSION: Successful PTCA stent of the LAD going from 99% initial stenosis to 0% residual stenosis. TRANSINT:[id number] Voice Confirmation ID: [id number] DOCUMENT ID: [id number] VESTA STONE MD at 1202 CC: [id number] DICTATION DATE: 02/10/18 1235 MINER: 02/10/18 1258 DEP CLI 02/10/18 [place] [address]
[~2018-02-09 15:32] MED LIST changes: -ASPIRIN81 MG PO; -PLAVIX75 MG PO; -PRAVACHOL20 MG PO; -PROVENTIL HFA6.7 GM INH
[2018-02-09 16:36] LABS: BASOPHILS 0.3 % (0-2); HEMATOCRIT 41.2 % (42.0-54.0); HEMOGLOBIN 14.1 g/dL (13.5-17.5); IMMATURE GRANULOCYTES 0.2 % (0-5); LYMPHOCYTES 16.9 % (15-50); MCH 30.2 pg (26.0-34.0); MCHC 34.2 g/dL (31.0-37.0); MCV 88.2 fL (80.0-100.0); MEAN PLATELET VOLUME 9.9 fL (7.4-10.4); NEUTROPHILS 78.6 % (40-80); PLATELET COUNT 217 10x3/uL (130-400); RBC 4.67 10x6/uL (4.20-6.10); WBC 10.1 10x3/uL (4.8-10.8)
[2018-02-09 16:50] LABS: ALBUMIN 3.9 g/dL (3.4-5.0); ALKALINE PHOSPHATASE 80 U/L (46-116); ALT (SGPT) 35 U/L (10-68); CALC OSMOLALITY 278 mosm/kg (275-300); CALCIUM 9.3 mg/dL (8.5-10.1); CARBON DIOXIDE 27.2 mmol/L (21.0-32.0); CHLORIDE - SERUM 104 mmol/L (98-107); CREATININE - SERUM 0.7 mg/dL (0.6-1.3); GLUCOSE 104 mg/dL (74-106); POTASSIUM - SERUM 3.5 mmol/L (3.5-5.1); SODIUM 140 mmol/L (136-145); UREA NITROGEN 12 mg/dL (7-18); eGFR NON AFRICAN AMERICAN > 90 mL/min (90-120)
[2018-02-09 17:07] LABS: CHOL - HDL RATIO 3.1 ratio (2.3-4.9); CHOLESTEROL, TOTAL 182 mg/dL (0-200); CKMB 1.9 U/L (0.0-3.6); CREATINE KINASE 299 UL (21-232); HDL CHOLESTEROL 59 mg/dL (32-96); LDL CHOLESTEROL 113 mg/dL (0-100); LDL-HDL RATIO 1.9 ratio (1.5-3.5); TRIGLYCERIDE 54 mg/dL (30-200)
[2018-02-09 17:09] LABS: TROPONIN-I 0.143 ng/mL (0.000-0.060)
[2018-02-09 22:07] LABS: CKMB 1.7 U/L (0.0-3.6); CREATINE KINASE 265 UL (21-232)
[2018-02-09] MEDS ORDERED: PROVENTIL HFA6.7 GM INH (22:54)
[2018-02-10 01:08] VITALS: BP 128/77
[2018-02-10 03:21] VITALS: BP 128/77; Ht 170.2 cm; Wt 70.9 kg
[2018-02-10 05:03] LABS: CKMB 1.9 U/L (0.0-3.6); CREATINE KINASE 219 UL (21-232)
[2018-02-10 05:19] LABS: TROPONIN-I 0.149 ng/mL (0.000-0.060)
[2018-02-10 05:32] VITALS: BP 103/50
[2018-02-10 07:55] VITALS: BP 117/71
[2018-02-10 11:27] VITALS: BP 105/66
[2018-02-10] MEDS ORDERED: PRAVACHOL20 MG PO (13:59)
[2018-02-10] MEDS ORDERED: ASPIRIN81 MG PO (14:00)
[2018-02-10] MEDS ORDERED: PLAVIX75 MG PO (14:00)
== END 2018-02-10 17:38 | disposition home or self-care (01) ==
LOC: OBSVTIME → D.ER 15:32 → D.CATH 15:32 → OBSVTIME 19:52 → D.EDHOLD 19:52 → D.ER 19:52 → D.M2 19:52 → D.EDHOLD 22:40 → EDSTATUS 02-10 09:00 → D.M2 02-10 17:38 → D.CATH 02-10 17:38 → D.M2 02-10 17:38
PROVIDERS: Emergency Medicine
DX: I21.4 Non-ST elevation (NSTEMI) myocardial infarction (principal); I25.110 Atherosclerotic heart disease of native coronary artery with unstable angina pectoris; E78.5 Hyperlipidemia, unspecified; Z01.812 Encounter for preprocedural laboratory examination

== ENCOUNTER → 2018-09-13 09:05 | Outpatient (CLI) | payer BC ==
[2018-02-10 03:21] VITALS: BMI 25.9
[~2018-09-13 09:05] MED LIST changes: +ASPIRIN81 MG PO; +PLAVIX75 MG PO; +PRAVACHOL20 MG PO; +PROVENTIL HFA6.7 GM INH
== END | disposition home or self-care (01) ==
LOC: D.CT 09:00
DX: C64.9 Malignant neoplasm of unspecified kidney, except renal pelvis (principal)

== ENCOUNTER → 2019-09-06 14:32 | Outpatient (CLI) | payer BC ==
[2018-02-10 03:21] VITALS: BMI 25.9
== END | disposition home or self-care (01) ==
LOC: D.CT 14:32
PROVIDERS: ATTEND Specialist
DX: N28.9 Disorder of kidney and ureter, unspecified (principal)

== ENCOUNTER → 2020-04-03 08:10 | Outpatient (CLI) | payer BC ==
[2018-02-10 03:21] VITALS: BMI 25.9
[~2020-04-03 08:10] MED LIST changes: +BAYER CHEWABLE81 MG PO; +LIPITOR20 MG PO
== END | disposition home or self-care (01) ==
LOC: D.RAD 08:10
PROVIDERS: ATTEND Family Medicine
DX: K22.2 Esophageal obstruction (principal)

== ENCOUNTER 2020-04-04 14:01 | Observation (INO) | payer BC ==
[~2020-04-04] VITALS: Ht 170.2 cm; Wt 80.9 kg
--- NOTE | ~2020-04-04 | HEMODYNAMI ---
PATIENT:TIANA MURRIETA MEDICAL RECORD: [id number] : 68 LOCATION:[facility] ADMISSION DATE: 04/04/20 Generatedon:04/05/202014:55 Patient name: TIANA MURRIETA Patient #: [id number] SSN: [id number] : 1970 Date of study: 04/05/2020 Page: Of Hemodynamic Procedure Report Patient Data Patient Demographics Procedure consent was obtained First Name: TIANA Gender: Male Last Name: : 1970 Middle Initial: O Age: 49 year(s) Patient #: [id number] Race: SSN: [id number] Additional ID: [id number] Contact details [address]: [address] [place] [address] TRAIL State: [place] City: [place] Zip code: [address] Past Medical History History of disease Date Diagnosis Comments CAD Allergies: No known allergies Admission Admission Data Admission Date: 04/04/2020 Admission Time: 14:50 Room #: D.2114 Height (in.): 66.93 BSA: 1.92 (m2) Height (cm.): 170 BMI: 27.68 (kg/m2) Weight (lbs.): 176.37 Weight (kg.): 80 Current Diagnosis Diagnosis Description Stable angina Lab Results Lab Result Date: 04/05/2020 Lab Result Time: 0:00 Biochemistry Name Units Result Min Max BUN mg/dl 14 --(--*-)-- 7 18 Creatinine mg/dl 0.8 --(-*--)-- 0.6 1.3 eGFR ml/min 90 --(*---)-- 90 120 NONAFRICAN CBC Name Units Result Min Max Hematocrit % 44.1 --(*---)-- 42 54 Hemoglobin g/dl 14.6 --(-*--)-- 13.5 17.5 Procedure Procedure Types Cath Procedure Diagnostic Procedure [facility] w/Coronaries Sedation Charges Moderate Sedation up to 15 minutes PCI Procedure Coronary Stent Coronary Stent Initial Hemochron ACT Test Procedure Description Procedure Date Procedure Date: 04/05/2020 Procedure Start Time: 14:22 Procedure End Time: 14:54 Procedure Staff Name Function Jose Enrique Mcintosh MD Performing Physician Fabiola Pappas RT Monitor Wen Giles RT Scrub Tiffanie Moreno RN Nurse Procedure Data Cath Procedure Fluoroscopy Diagnostic fluoroscopy Total fluoroscopy Time: 7.8 time: 7.8 min min Diagnostic fluoroscopy Total fluoroscopy dose: dose: 1576 mGy 1576 mGy Contrast Material Contrast Material Type Amount (ml) Isovue 300 128 Entry Location Entry Primary Successful Side Size Upsize Upsize Entry Closure Succes sful Closure Location (Fr) 1 (Fr) 2 (Fr) Remarks Device Remarks Femoral Right 5 Fr 6 Fr Exoseal artery Short Estimated blood loss: 10 ml Diagnostic catheters Device Type Used For End Catheter Placement MULTIPACK JL 4.0 5Fr Procedure catheter MULTIPACK 3DRC 5Fr Procedure catheter MULTIPACK Pigtail 5 Fr Procedure catheter Procedure Complications No complications Procedure Medications Medication Administration Route Dosage 0.9% NaCl I.V. 100 ml/hr Oxygen etCO2 Nasal cannula 2 l/min Lidocaine 2% added to field 20 Heparin Flush Bag added to field 2 bags (1000units/500ml NS) Versed I.V. 2 mg Fentanyl I.V. 50 mcg Versed I.V. 2 mg Fentanyl I.V. 50 mcg Heparin Bolus I.V. 5000 units Fentanyl I.V. 50 mcg Versed I.V. 2 mg Fentanyl I.V. 50 mcg Hemodynamics Rest BSA: 1.92 (m2) HGB: 14.6 (g/dl) O2 Consumption: Estimated: 223.85 (ml/min) O2 Co nsumption indexed: Estimated:116.59 (ml/min/m) Heart Rate: 62 (bpm) Pressure Samples Time Site Value (mmHg) Purpose Heart Use Rate(bpm) 14:28 LV 119/2,7 Snapshot 68 14:28 AO 125/60(89) Pullback 68 14:28 LV 120/3,13 Pullback 68 Gradients Valve Time Site 1 Site 2 Mean SEP/DFP Peak To Heart Use (mmHg) (sec/min) Peak Rate (mmHg) (bpm) Aortic 14:28 LV AO 0 5 0 68 120/3,13 125/60(89) Calculations Valve P-P Mean Valve Index Valve Source Name Gradient Area Flow (cm2) Aortic 0 0 0 0 Snapshots Pre Cath Intra NCS Post Cath Vital Signs Time Heart Resp SPO2 etCO2 NIBP (mmHg) Rhythm Pain Sedation Rate (ipm) (%) (mmHg) Status Level (bpm) 14:00:57 61 14 100 42.1 135/79(102) NSR 0 (11) 10(A) , No pain 14:05:05 64 14 100 41.3 141/82(101) NSR 0 (11) 10(A) , No pain 14:09:14 64 12 100 41.4 137/79(100) NSR 0 (11) 10(A) , No pain 14:13:24 68 14 100 44.4 122/74(92) NSR 0 (11) 10(A) , No pain 14:17:28 69 17 99 36.8 130/79(94) NSR 0 (11) 10(A) , No pain 14:21:36 72 11 99 28.6 129/76(94) NSR 0 (11) 10(A) , No pain 14:25:44 65 12 98 42.9 128/75(96) NSR 0 (11) 10(A) , No pain 14:29:52 68 12 97 44.6 138/73(93) NSR 0 (11) 10(A) , No pain 14:33:59 73 11 98 49.7 98/88(95) NSR 0 (11) 10(A) , No pain 14:38:44 67 15 96 40.7 134/82(115) NSR 0 (11) 10(A) , No pain 14:42:50 75 10 98 44.8 144/91(105) NSR 0 (11) 10(A) , No pain 14:47:06 64 12 0 128/73(120) NSR 0 (11) 10(A) , No pain 14:52:05 65 13 0 Measuring NSR 0 (11) 10(A) , No pain 14:52:11 64 11 0 131/82(112) NSR 0 (11) 10(A) , No pain Medications Time Medication Route Dose Verified Delivered Reason Notes Effectiveness by by 14:05:29 0.9% NaCl I.V. 100 Jose Enrique Moreno used for ml/hr DaynaChema Moreno procedure RN 14:05:35 Oxygen etCO2 2 Jose Enrique Tiffanie used for Nasal l/min [facility] procedure cannula MD GUADARRAMA 14:05:39 Lidocaine 2% added 20ml oJse Enrique Quispe for local to vial [facility] anesthetic field MD BASS 14:05:43 Heparin Flush added 2 Jose Enrique Jose Enrique used for Bag to bags [facility] procedure (1000units/500ml field MD BASS NS) 14:22:36 Versed I.V. 2 mg Jose Enrique Tiffanie for sedation St Chema Moreno MD, RN 14:22:45 Fentanyl I.V. 50 Jose Enrique Tiffanie for sedation mcg St Chema Moreno MD, RN 14:27:52 Versed I.V. 2 mg Jose Enrique Tiffanie for sedation St Chema Moreno MD, RN 14:27:58 Fentanyl I.V. 50 Jose Enrique Tiffanie for sedation mcg St Chema Moreno MD, RN 14:31:05 Heparin Bolus I.V. 5000 Jose Enrique Tiffanie for units St Chema ling MD, RN 14:31:41 Fentanyl I.V. 50 Jose Enrique Tiffanie for sedation mcg St Chema Moreno MD, RN 14:38:03 Versed I.V. 2 mg Jose Enrique Tiffanie for sedation St Chema Moreno MD, RN 14:38:09 Fentanyl I.V. 50 Jose Enrique Tiffanie for sedation laci Granados MD touch up worker Log Time Note 13:41:33 Informed consent obtained and on chart 13:41:50 Procedure Status Urgent Heart Cath (IP). 13:41:51 Time tracking: Regular hours (M-F 7:00 - 5:00) 13:41:53 Plan of Care:Hemodynamics will remain stable., Cardiac rhythm will remain stable., Comfort level will be maintained., Respiratory function will remain adequate., Patient/ family verbilizes understanding of procedure., Procedure tolerated without complication., Recovers from procedure without complications.. 13:41:54 Wen Giles RT(R) sent for patient. Start room use. 13:59:42 Patient received from Med II to [facility] 2 Alert and oriented. Tansferred to table in Supine position. 13:59:43 Warm blankets applied, and max hugger turned on for patient comfort. 13:59:44 Correct patient and procedure confirmed by team. 13:59:44 ECG and BP/O2 sat monitors applied to patient. 13:59:45 Vital chart was started 13:59:47 Baseline sample Acquired. 13:59:51 Rhythm: sinus rhythm 13:59:53 Full Disclosure recording started 14:00:53 H&P Date Dictated: 04/04/2020 ER History on chart.. 14:00:53 Pre-procedure instructions explained to patient. 14:00:54 Pre-op teaching completed and patient verbalized understanding. 14:00:55 Family AVAILABLE WITH PHONE CALL 14:01:12 Patient NPO since Midnight. 14:01:16 Patient allergic to No known allergies 14:01:18 Is patient on blood thinner?Yes- given plavix yesterday 14:01:19 Patient diabetic? No. 14:01:22 Previous problem with sedation/anesthesia? No ? 14:01:23 Snore? Yes 14:01:24 Sleep apnea? No 14:01:25 Deviated septum? No 14:01:26 Opens mouth fully? Yes 14:01:51 Sticks out tongue? Yes 14:01:54 Airway obstruction? Yes COPD 14:01:57 Dentures? No ? 14:02:01 Pre procedure: right dorsailis pedis pulse 1+ Palpable, but thready & weak; easily obliterated 14:02:33 Pre procedure: right dorsailis pedis pulse 1+ Palpable, but thready & weak; easily obliterated 14:02:36 Patient pain scale 0/10 ?. 14:02:57 IV patent on arrival in left hand with 0.9% NaCl at [facility]. 14:03:00 Lab results completed and on chart. 14:03:35 Right groin area was prepped with chlora-prep and draped in sterile fashion 14:03:36 Alarms reviewed by R. N. 14:03:37 Sharps counted by scrub and verified by R.N. 14:05:29 0.9% NaCl 100 ml/hr I.V. was administered by Tiffanie Moreno RN; used for procedure; Verbal order read back and verified. 14:05:35 Oxygen 2 l/min etCO2 Nasal cannula was administered by Tiffanie Moreno RN; used for procedure; Verbal order read back and verified. 14:05:39 Lidocaine 2% 20ml vial added to field was administered by Jose Enrique Mcintosh MD; for local anesthetic; Verbal order read back and verified. 14:05:43 Heparin Flush Bag (1000units/500ml NS) 2 bags added to field was administered by Jose Enrique Mcintosh MD; used for procedure; Verbal order read back and verified. 14:08:00 Lab Result : BUN 14 mg/dl 14:08:00 Lab Result : Creatinine 0.8 mg/dl 14:08:00 Lab Result : eGFR NONAFRICAN 90 ml/min 14:08:00 Lab Result : Hemoglobin 14.6 g/dl 14:08:00 Lab Result : Hematocrit 44.1 % 14:08:06 Use device set Femoral Dx 14:08:07 ACIST Syringe (51687) opened to sterile field. 14:08:08 Bag Decanter (2002S) opened to sterile field. 14:08:09 ACIST Hand Control (23057) opened to sterile field. 14:08:09 ACIST Manifold (83090) opened to sterile field. 14:08:10 Tegaderm 4 x 4 (1626W) opened to sterile field. 14:08:11 Medline Cath Pack ([id number]) opened to sterile field. 14:08:12 DIAGNOSTIC Multipack 5Fr catheter set (WQ9339) opened to sterile field. 14:08:12 SHEATH 5FR Lula (RAZ573) opened to sterile field. 14:08:13 EMERALD Guide Wire (908-025) opened to sterile field. 14:13:06 Patient Weight : 176.37 lbs 14:13:15 Patient Height : 66.93 inches 14:13:23 Current Diagnosis : Stable angina 14:14:54 Risk of Mortality: .1 14:14:56 Risk of blood transfusion: .1 14:15:05 Risk of LESLIE: .1 14:21:40 --------ALL STOP TIME OUT------ 14:21:40 Final Timeout: patient, procedure, and site verified with staff and physician. All members of the team are in agreement. 14:21:42 Right groin site verified by team. 14:21:46 Fire Safety Assessment: A--An alcohol-based skin anteseptic being used preoperatively., C--Open oxygen or nitrous oxide is being used., D--An ESU, laser, or fiber-optic light is being used. 14:21:48 Physical assessment completed. ASA score P 2 - A patient with mild systemic disease as per Jose Enrique Mcintosh MD. 14:21:50 1) 90+ Normal kidney functon but urine findings or structural abnormalities or genetic trait point to kidney disease. 14::52 Maximum allowable contrast dose (3.7 X eGFR X 0.75)250 ml. 14::55 Sedation plan: IV Moderate Sedation Medication:Versed, Fentanyl 14::58 Procedure started. 14:22:10 Zero performed for pressure channel P1 14::17 Zero performed for pressure channel P1 14::36 Versed 2 mg I.V. was administered by Tiffanie Moreno RN; for sedation; Verbal order read back and verified. 14::43 Local anesthetic to right femoral artery with Lidocaine 2% by Jose Enrique Mcintosh MD.INITIAL ACCESS ONLY 14::45 Fentanyl 50 mcg I.V. was administered by Tiffanie Moreno RN; for sedation; Verbal order read back and verified. 14:23:37 A 5 Fr sheath was inserted into the Right Femoral artery 14::50 A MULTIPACK JL 4.0 5Fr catheter was advanced over the wire and used for Procedure. 14:25:09 LCA angiography performed. 14:26:34 Catheter removed. 14:26:43 A MULTIPACK 3DRC 5Fr catheter was advanced over the wire and used for Procedure. 14:27:37 RCA angiography performed. 14:27:39 ACCDominant side:Left 14:27:40 Catheter removed. 14::52 Versed 2 mg I.V. was administered by Tiffanie Moreno RN; for sedation; Verbal order read back and verified. ::58 Fentanyl 50 mcg I.V. was administered by Tiffanie Moreno RN; for sedation; Verbal order read back and verified. 14:28:20 A MULTIPACK Pigtail 5 Fr catheter was advanced over the wire and used for Procedure. 14:28:21 LV gram done using SCHOFIELD 14::24 Injector settings: Ml/sec: 10, Volume: 20, 14:28:32 LV hemodynamics recorded. 14:29:03 Catheter removed. 14:29:09 Proceeding to intervention. 14:29:16 SHEATH 6FR Lula (QEE396) opened to sterile field. 14:: INFLATOR [place] BasixCompak (CN2763) opened to sterile field. 14:29:27 WHISPER 300cm guide wire ([id number]) opened to sterile field. 14:29:33 GUIDE 6FR XBLAD 3.5 catheter ([id number]) opened to sterile field. 14:29:52 Sheath upsized to a 6 Fr Short. 14:30:36 Pre PCI Site: [place] Diag1 has 80% stenosis. 14:30:40 6 Fr XBLAD 3.5 guide catheter was inserted over the wire 14:31:05 Heparin Bolus 5000 units I.V. was administered by Tiffanie Moreno RN; for anticoagulation; Verbal order read back and verified. 14:31:41 Fentanyl 50 mcg I.V. was administered by Tiffanie Moreno RN; for sedation; Verbal order read back and verified. 14:32:09 WHISPER 300 wire advanced. 14:33:43 Wire advanced across lesion. 14:34:41 The EMERGE OTW 3.0 x 12 balloon ([id number]) was advanced and then removed because it fell on the floor 14:37:41 Inflate balloon Inflation number: 1 A EMERGE OTW 1.5 x 15 balloon ([id number]) was prepped and advanced across the 1st Diag , then inflated to 12 SADIQ for 0:15 (min:sec) . 14:38:03 Versed 2 mg I.V. was administered by Tiffanie Moreno RN; for sedation; Verbal order read back and verified. 14:38:09 Fentanyl 50 mcg I.V. was administered by Tiffanie Moreno RN; for sedation; Verbal order read back and verified. 14:38:16 Balloon removed over the wire. 14:40:05 Inflate balloon Inflation number: 2 A EMERGE OTW 3.0 x 12 balloon ([id number]) was prepped and advanced across the 1st Diag , then inflated to 10 SADIQ for 0:00 (min:sec) . 14:40:20 Balloon removed over the wire. 14:44:08 Place stent Inflation Number: 3 A ANASTASIA OTW 3.0 x 08 stent ([id number]) was prepped and advanced across the 1st Diag . The stent was deployed at 14 SADIQ for 0:00 (min:sec) . 14:44:34 Stent catheter was removed intact over wire. 14:44:35 Wire removed. 14:44:35 Guide catheter removed. 14:45:11 EXOSEAL 6Fr (EX600) opened to sterile field. 14:45:40 Sheath removed intact; hemostasis achieved with Exoseal to the Right Femoral artery. 14:46:02 Procedure ended.(Physican Out) 14:46:46 Fluoroscopy time 07.80 minutes. 14:46:54 Fluoroscopy dose: 1576 mGy 14:46:54 Flurop Dose total: 1576 14:47:05 Dose Area Product 65847 mGy/cm. 14:47:09 Contrast amount:Isovue 300 128ml. 14:47:12 Maximum allowable dose exceeded? No. 14:47:13 Sharps counted by scrub and verified by R.N. 14:47:28 Post-op/insertion site Right Femoral artery dressed using a 4 x 4 and Tegaderm. 14:47:33 Post-procedure physical assessment completed. ASA score P 2 - A patient with mild systemic disease as per Jose Enrique Mcintosh MD. 14:47:36 Post procedure rhythm: sinus rhythm 14:47:38 Estimated blood loss: 10 ml 14:47:39 Post procedure instruction explained to patient.Patient verbalizes understanding. 14:47:40 Patient needs reinforcement of post procedure teaching. 14:47:52 ACT drawn and resulted at 182 seconds. (normal therapeutic range 180-240 seconds). 14:48:42 Procedure type changed to Cath procedure, Diagnostic procedure, LHC, [facility] w/Coronaries, Sedation Charges, Moderate Sedation up to 15 minutes, PCI procedure, Coronary Stent, Coronary Stent Initial, Hemochron ACT Test 14:49:10 Procedure and supply charges have been captured, reviewed, submitted and are correct. 14:49:12 Procedure Complication : No complications 14:49:17 [facility] Findings: MVD- PCI performed (see procedure note) 14:49:18 Operative report dictated upon procedure completion. 14:49:18 See physician's report for complete and final results. 14:54:19 Vital chart was stopped 14:54:23 Report given to [facility] II. 14:54:27 Patient transfered to [facility] II with Bed. 14:54:31 Procedure ended. 14:54:31 Full Disclosure recording stopped 14:54:41 ACC-PCI Only Patient was given prescriptions, or instructed by Jose Enrique Mcintosh MD to start/continue the following medications upon discharge: Plavix 14:54:43 End room use (Document Last) 14:54:54 End room use (Document Last) 14:55:24 End room use (Document Last) Intervention Summary Intervention Notes Time ActionType Lesion and Equipment Action# Pressure Duration Attributes Used 14:34:41 Discard EMERGE OTW Balloon 3.0 x 12 balloon ([id number]) 14:37:41 Inflate 1st Diag EMERGE OTW 1 12 00:15 balloon 1.5 x 15 balloon ([id number]) 14:40:05 Inflate 1st Diag EMERGE OTW 2 10 00:00 balloon 3.0 x 12 balloon ([id number]) 14:44:08 Place stent 1st Diag ANASTASIA OTW 3.0 3 14 00:00 x 08 stent ([id number]) Device Usage Item Name Manufacture Quantity Catalog Number Hospital Part Current M inimal Lot# / Charge Number Stock Stock Serial# Code ACIST Syringe Acist 1 55073 586431 470948 169417 2 0 (79179) Medical Systems Inc Bag Decanter Microtek 1 2001S 447109 71540 898770 5 () Medical Inc. ACIST Hand Acist 1 93770 331754 388351 898019 5 Control Medical (74454) Systems Inc ACIST Acist 1 61631 367692 668608 588147 5 Manifold Medical (71452) Systems Inc Tegaderm 4 x 3M 1 1626W 063288 340815 508190 5 4 (1626W) Medline Cath Medline 1 [id number] 211485 27275 537298 5 Pack ([id number]) DIAGNOSTIC Cardinal 1 PA4626 213872 78368 995224 3 0 Multipack 5Fr Health catheter set (VS5600) SHEATH 5FR Terumo 1 NKD649 850360 171117 711902 5 Lula (GBI706) EMERALD Guide Cardinal 1 502-455 047917 564252 862521 5 Wire Health (502455) MULTIPACK JL Cardinal 1 851186 5 4.0 5Fr Health catheter MULTIPACK Cardinal 1 462312 5 3DRC 5Fr Health catheter MULTIPACK Cardinal 1 929171 5 Pigtail 5 Fr Health catheter SHEATH 6FR Terumo 1 MYE594 621287 771673 812389 4 0 Lula (FTQ053) INFLATOR [facility] 1 GS9280 101360 259158 881265 1 5 [facility] BasixCompak (TF4717) WHISPER 300cm [place] 1 [id number] 634498 939601 278090 5 guide wire Vascular (8093698PG) GUIDE 6FR Cardinal 1 [id number] 921332 140146 658957 1 0 XBLAD 3.5 Health catheter (62126333) EMERGE OTW [place] 1 [id number] 480543 165232 969500 5 [id number] 3.0 x 12 Scientific balloon ([id number]) EMERGE OTW [place] 1 [id number] 092152 521365 310168 5 63978453 1.5 x 15 Scientific balloon ([id number]) ANASTASIA OTW 3.0 Medtronic 1 [id number] 216412 0786507 526496 5 [id number] x 08 stent ([id number]) EXOSEAL 6Fr Cardinal 1 EX600 085159 026839 589686 1 0 (EX600) [facility] Signature Audit [place] Stage Time Signature Unsigned Intra-Procedure 04/05/2020 Fabiola Pappas 2:54:54 PM RT(R) Intra-Procedure 04/05/2020 Tiffanie Moreno 2:55:24 PM RN Intra-Procedure 04/05/2020 Jose Enrique [place] 2:55:51 PM Chema BASS Signatures Performing Physician : Signature : Jose Enrique Mcintosh MD Date : Time : Monitor : Fabiola Pappas Signature : RT Date : Time : Nurse : Tiffanie Moreno RN Signature : Date : Time : [facility] [address] [place] [address]
[~2020-04-04 14:01] MED LIST changes: -BAYER CHEWABLE81 MG PO; -LIPITOR20 MG PO
[2020-04-04 14:40] VITALS: BP 141/80
[2020-04-04 14:51] LABS: BASOPHILS 0.3 % (0-2); EOSINOPHILS 3.2 % (0-7); HEMATOCRIT 44.9 % (42.0-54.0); HEMOGLOBIN 14.8 g/dL (13.5-17.5); IMMATURE GRANULOCYTES 0.4 % (0-5); LYMPHOCYTES 33.6 % (15-50); MCH 28.8 pg (26.0-34.0); MCV 87.5 fL (80.0-100.0); MEAN PLATELET VOLUME 9.7 fL (7.4-10.4); MONOCYTES 3.7 % (2-11); NEUTROPHILS 58.8 % (40-80); PLATELET COUNT 243 10x3/uL (130-400); RBC 5.13 10x6/uL (4.20-6.10); RDW 13.3 % (11.5-14.5); WBC 7.5 10x3/uL (4.8-10.8)
[2020-04-04 15:18] LABS: APTT 25.9 SECONDS (22.8-39.4); INR 0.92 (0.85-1.17); PROTIME 12.4 SECONDS (11.6-15.0)
[2020-04-04 15:25] LABS: CALC OSMOLALITY 279 mosm/kg (275-300); CALCIUM 9.2 mg/dL (8.5-10.1); CARBON DIOXIDE 31.9 mmol/L (21.0-32.0); CHLORIDE - SERUM 101 mmol/L (98-107); CREATININE - SERUM 0.9 mg/dL (0.6-1.3); GLUCOSE 137 mg/dL (74-106); POTASSIUM - SERUM 3.8 mmol/L (3.5-5.1); SODIUM 138 mmol/L (136-145); UREA NITROGEN 19 mg/dL (7-18); eGFR NON AFRICAN AMERICAN > 90 mL/min (90-120)
[2020-04-04 15:45] LABS: ALBUMIN 3.4 g/dL (3.4-5.0); ALKALINE PHOSPHATASE 92 U/L (30-120); ALT (SGPT) 24 U/L (10-68); BILIRUBIN - TOTAL 0.29 mg/dL (0.2-1.3); CKMB 0.9 U/L (0.0-3.6); CREATINE KINASE 59 UL (21-232); MAGNESIUM - SERUM 1.9 mg/dL (1.8-2.4)
[2020-04-04 15:52] LABS: TROPONIN-I 0.063 ng/mL (0.000-0.060)
[2020-04-04 16:00] VITALS: BP 126/83
--- NOTE | 2020-04-04 16:21 | NUR ---
TRANSFER FROM ER BY STRETCHER. CALL LIGHT IN REACH. WILL CONT. PLAN OF CARE.
[2020-04-04 16:42] VITALS: BP 141/80; BMI 27.4
[2020-04-04 17:15] VITALS: Ht 170.2 cm; Wt 80.9 kg
[2020-04-04 17:45] LABS: ALT (SGPT) 25 U/L (10-68); CALC OSMOLALITY 279 mosm/kg (275-300); CALCIUM 9.2 mg/dL (8.5-10.1); CARBON DIOXIDE 29.6 mmol/L (21.0-32.0); CHLORIDE - SERUM 101 mmol/L (98-107); CHOL - HDL RATIO 4.4 ratio (2.3-4.9); CHOLESTEROL, TOTAL 197 mg/dL (0-200); CREATININE - SERUM 0.9 mg/dL (0.6-1.3); GLUCOSE 132 mg/dL (74-106); HDL CHOLESTEROL 45 mg/dL (32-96); LDL CHOLESTEROL 114 mg/dL (0-100); LDL-HDL RATIO 2.5 ratio (1.5-3.5); POTASSIUM - SERUM 3.8 mmol/L (3.5-5.1); SODIUM 138 mmol/L (136-145); TRIGLYCERIDE 193 mg/dL (30-200); UREA NITROGEN 19 mg/dL (7-18); eGFR NON AFRICAN AMERICAN > 90 mL/min (90-120)
--- NOTE | 2020-04-04 19:00 | NUR ---
REPORT RECEIVED, WILL CONTINUE POC. PATIENT IS AAOX4, LYING IN SEMI-FOWLERS POSITION. NO S/S OF DISTRESS OBSERVED, RR EVEN AND UNLABORED ON ROOM AIR. PATIENT REQUESTING TO HAVE PAIN MEDS AND SYMBICORT ADDED TO EMAR THEY ARE HIS HOME MEDS. PIV TO RT AC INFUSING 75ML/HR. PATIENT DENIES FURTHER NEEDS AT THIS TIME. CL IN REACH, BED LOCKED AND LOWERED. WILL CTM.
[2020-04-04 20:00] VITALS: BP 131/81
[2020-04-04 20:28] LABS: CKMB 0.8 U/L (0.0-3.6); CREATINE KINASE 59 UL (21-232)
[2020-04-04 20:41] LABS: TROPONIN-I 0.078 ng/mL (0.000-0.060)
--- NOTE | 2020-04-04 22:00 | NUR ---
PATIENT C/O PAIN 5/10 ADMINISTERED PRN MORPHINE AND ZOFRAN PER ORDERS.
--- NOTE | 2020-04-05 02:22 | NUR ---
PATIENT OUT OF ROOM TO VENDING MACHINE AND BACK. PATIENT DENIES NEEDS AT THIS TIME. LAB AT BEDSIDE.
[2020-04-05 02:39] LABS: BASOPHILS 0.3 % (0-2); EOSINOPHILS 2.8 % (0-7); HEMATOCRIT 44.1 % (42.0-54.0); HEMOGLOBIN 14.6 g/dL (13.5-17.5); IMMATURE GRANULOCYTES 0.4 % (0-5); LYMPHOCYTES 35.2 % (15-50); MCH 28.9 pg (26.0-34.0); MCHC 33.1 g/dL (31.0-37.0); MCV 87.2 fL (80.0-100.0); MEAN PLATELET VOLUME 9.3 fL (7.4-10.4); MONOCYTES 5.5 % (2-11); NEUTROPHILS 55.8 % (40-80); PLATELET COUNT 272 10x3/uL (130-400); RBC 5.06 10x6/uL (4.20-6.10); RDW 13.3 % (11.5-14.5); WBC 7.6 10x3/uL (4.8-10.8)
[2020-04-05 03:16] LABS: ALBUMIN 3.5 g/dL (3.4-5.0); ALKALINE PHOSPHATASE 95 U/L (30-120); ALT (SGPT) 21 U/L (10-68); CALCIUM 8.8 mg/dL (8.5-10.1); CARBON DIOXIDE 27.8 mmol/L (21.0-32.0); CHLORIDE - SERUM 103 mmol/L (98-107); CREATINE KINASE 67 UL (21-232); CREATININE - SERUM 0.8 mg/dL (0.6-1.3); GLUCOSE 104 mg/dL (74-106); MAGNESIUM - SERUM 1.8 mg/dL (1.8-2.4); PHOSPHOROUS 4.4 mg/dL (2.5-4.9); PROTEIN - SERUM 7.2 g/dL (6.4-8.2); SODIUM 138 mmol/L (136-145); UREA NITROGEN 14 mg/dL (7-18); eGFR NON AFRICAN AMERICAN > 90 mL/min (90-120)
[2020-04-05 03:17] LABS: CALC OSMOLALITY 276 mosm/kg (275-300); TROPONIN-I 0.122 ng/mL (0.000-0.060)
[2020-04-05 04:00] VITALS: BP 131/93; BP 136/84
[2020-04-05 08:56] VITALS: BP 139/85
[2020-04-05 09:27] LABS: CKMB 0.7 U/L (0.0-3.6); CREATINE KINASE 76 UL (21-232)
[2020-04-05 09:30] LABS: TROPONIN-I 0.101 ng/mL (0.000-0.060)
--- NOTE | 2020-04-05 13:45 | NUR ---
PRE-OPS GIVEN. TO DIRECTOR CAREER BY BED.
[2020-04-05 13:50] VITALS: BP 137/86
--- NOTE | 2020-04-05 15:15 | NUR ---
BACK FROM PARLIAMENTARY COUNSEL VS WNL. RIGHT GROIN STABLE. WILL MONITOR.
[2020-04-05] MEDS ORDERED: LIPITOR20 MG PO (15:25)
[2020-04-05] MEDS ORDERED: BAYER CHEWABLE81 MG PO (15:25)
[2020-04-05] MEDS ORDERED: PLAVIX75 MG PO (15:25)
[2020-04-05 16:23] LABS: BILIRUBIN NEGATIVE (NEGATIVE); GLUCOSE NEGATIVE (NEGATIVE); KETONE NEGATIVE (NEGATIVE); NITRITE NEGATIVE (NEGATIVE); SPECIFIC GRAVITY 1.005 (1.005-1.020); UROBILINOGEN NORMAL (NORMAL)
[2020-04-05 19:23] VITALS: BP 114/62
--- NOTE | 2020-04-05 19:35 | NUR ---
PATIENT BEDREST UP AT 1900. PATIENT RIGHT GROIN, SOFT NO SIGNS OF BLEEDING OR BRUISING. IV DISCONTINUED CATHETER INTACT.
--- NOTE | 2020-04-06 08:08 | OP ---
PATIENT NAME: TIANA MURRIETA MEDICAL RECORD: [id number] :68 LOCATION:D.M2 D.2114 ADMISSION DATE:04/04/20 SURGEON: OLIVE MILLER MD DATE OF OPERATION: 04/05/2020 PROCEDURES: Left heart catheterization, selective coronary angiography plus PTCA stenting, right femoral artery approach. CATHETERS: A 5-Cypriot sheath, 5/4 left and right Ramona 5/4 pig. The procedure was well tolerated. The patient was returned to azul. Sheath removed. ExoSeal device was placed. FINDINGS: Left ventriculography in 30-degree SCHOFIELD view; normal wall motion and normal systolic function. CORONARY ANATOMY: LEFT MAIN: Left main is free of disease. LAD: Free of disease. There is a snow plowing with some thrombus burden into the first diagonal. The first diagonal itself is a large diagonal, is free of vessel, this is at least 90%. CIRCUMFLEX: Circumflex is free of disease. RIGHT CORONARY ARTERY: Right coronary artery is dominant and free of disease. IMPRESSION: No plowing of the diagonal one. PLAN: Intervention momentarily. DESCRIPTION OF PROCEDURE: A 5-Cypriot sheath was exchanged for a 6-Cypriot sheath. An XB LAD guiding catheter provided excellent guide catheter support followed by a 300 cm Whisper wire, it was placed across the tightly occluded diagonal down this portion of vessel. Due to the strut location, we then had to dilate in a stepwise fashion with the 1.5 balloon, then a 3.0 balloon and finally we were able to place a 3.0 x 8 Mayur drug-eluting stent up to 14 atmospheres for 45 seconds. Final angiography shows excellent resolution of better than 90% stenosis to no significant residual. LOUISA flow improved from 2 to 3 with nice pumping into the distal vasculature. Sheath was closed with ExoSeal device. The patient was previously loaded with Plavix. TRANSINT:[id number] Voice Confirmation ID: [id number] DOCUMENT ID: [id number] OLIVE MILLER MD at 0808 CC: [id number] DICTATION DATE: 04/05/20 1459 SENIOR LOGISTICS MANAGER: 04/05/20 1633 DIS IN 04/05/20 [id number] [place] [address]
== END 2020-04-05 19:37 | disposition home or self-care (01) ==
LOC: D.ER 14:01 → D.M2 14:50 → OBSVTIME 15:00 → D.M2 04-05 19:37
PROVIDERS: Family Medicine; Internal Medicine Interventional Cardiology; ADMIT Internal Medicine Nephrology; ATTEND Internal Medicine Nephrology
DX: I21.4 Non-ST elevation (NSTEMI) myocardial infarction (principal); I25.119 Atherosclerotic heart disease of native coronary artery with unspecified angina pectoris; I10 Essential (primary) hypertension; J44.9 Chronic obstructive pulmonary disease, unspecified; F41.9 Anxiety disorder, unspecified; F90.9 Attention-deficit hyperactivity disorder, unspecified type

== ENCOUNTER → 2021-02-18 08:57 | Outpatient (CLI) | payer BC ==
[2020-04-04 17:15] VITALS: BMI 27.4
[~2021-02-18 08:57] MED LIST changes: +BAYER CHEWABLE81 MG PO; +LIPITOR20 MG PO
== END | disposition home or self-care (01) ==
LOC: D.MRI 02-06 09:00
PROVIDERS: ATTEND Family Medicine
DX: N28.9 Disorder of kidney and ureter, unspecified (principal)

== ENCOUNTER → 2021-02-27 09:50 | Outpatient (CLI) | payer BC ==
[2020-04-04 17:15] VITALS: BMI 27.4
== END | disposition home or self-care (01) ==
LOC: D.MRI 02-22 08:00
PROVIDERS: ATTEND Family Medicine
DX: N28.9 Disorder of kidney and ureter, unspecified (principal)

== ENCOUNTER → 2021-05-21 14:19 | Outpatient (CLI) | payer BC ==
[2020-04-04 17:15] VITALS: BMI 27.4
[~2021-05-21 14:19] MED LIST changes: +ADDERALL 30 MG30 MG PO; +CLEOCIN HCL150 MG PO; +FLOMAX0.4 MG PO; +OXYCODONE HCL5 M1 PO; -OXYCODONE HCL5 MG PO; +PROBIOTIC1 EAC1 PO
== END | disposition home or self-care (01) ==
LOC: D.MRI 14:19
PROVIDERS: ATTEND Clinical Nurse Specialist Family Health
DX: L02.612 Cutaneous abscess of left foot (principal)

== ENCOUNTER 2021-05-24 10:50 | Day surgery (SDC) | payer BC ==
[~2021-05-24] VITALS: Ht 170.2 cm; Wt 77.1 kg
[2021-05-24 11:41] LABS: BASOPHILS 0.9 % (0-2); EOSINOPHILS 4.1 % (0-7); HEMATOCRIT 47.2 % (42.0-54.0); HEMOGLOBIN 16.4 g/dL (13.5-17.5); LYMPHOCYTES 33.1 % (15-50); MCH 29.8 pg (26.0-34.0); MCHC 34.8 g/dL (31.0-37.0); MCV 85.9 fL (80.0-100.0); MEAN PLATELET VOLUME 7.6 fL (7.4-10.4); MONOCYTES 5.8 % (2-11); NEUTROPHILS 56.1 % (40-80); PLATELET COUNT 257 10x3/uL (130-400); RDW 14.4 % (11.5-14.5)
[2021-05-24 11:55] LABS: APTT 26.6 SECONDS (22.8-39.4); CALC OSMOLALITY 277 mosm/kg (275-300); CALCIUM 9.5 mg/dL (8.5-10.1); CARBON DIOXIDE 27.9 mmol/L (21.0-32.0); CHLORIDE - SERUM 102 mmol/L (98-107); CREATININE - SERUM 0.9 mg/dL (0.6-1.3); GLUCOSE 111 mg/dL (74-106); INR 0.97 (0.85-1.17); POTASSIUM - SERUM 4.4 mmol/L (3.5-5.1); PROTIME 11.9 SECONDS (11.6-15.0); SODIUM 137 mmol/L (136-145); UREA NITROGEN 22 mg/dL (7-18); eGFR NON AFRICAN AMERICAN > 90 mL/min (90-120)
[2021-05-24 14:10] VITALS: BP 118/74; Ht 170.2 cm; Wt 77.1 kg
--- NOTE | 2021-05-24 18:54 | NUR ---
PT REPORTS NO PAIN. DRSG CDI. DISCHARGE INSTRUCTIONS GIVEN AND PT VERBALIZED AN UNDERSTANDING. IV D/C'D WITH CANNULA INTACT, PRESSURE HELD AND DRSG PLACED.
--- NOTE | 2021-05-25 08:20 | OP ---
PATIENT NAME: TIANA STEELE MEDICAL RECORD: [id number] :68 LOCATION:DYoungOPS ADMISSION DATE: SURGEON: AMBROSIO ZHONG DO DATE OF OPERATION: 05/24/2021 PROCEDURE PERFORMED: Left foot abscess incision and debridement down to the level of the fascia. It was an excisional debridement. PREOPERATIVE DIAGNOSIS: Left foot abscess. POSTOPERATIVE DIAGNOSIS: Left foot abscess. INDICATIONS: Mr. Steele is a 50-year-old male who had a left foot abscess was getting quite red and going up his leg and he was concerned about that, given two Rocephin shots and put on clindamycin started to get better, but did form an abscess and MRI showing the abscess in the dorsal aspect of the foot in the mid foot area. I told him we probably need to I and D to get the purulence out of there and he was okay with that as where the risks include damage to nerves and vessels in the area, continued infection, continued pain, need for further surgery, and he signed the consent. SURGEON: Ambrosio Zhong DO DESCRIPTION OF PROCEDURE: The patient was given a block by anesthesia in preoperative area and taken to the operative suite, laid in the supine position, given general anesthetic and LMA was placed. He was given 1 gram of vancomycin. The left lower extremity was then prepped and draped in sterile fashion. A timeout was performed. Everyone was in agreeance with the correct site, side, patient and procedure. I then began by making an incision over the mid foot area proximal metatarsals and longitudinally over where the abscess was. I made incision and copious amounts of purulent fluid was drained out from there. I then cultured it with cultures and opened up with a Weitlaner and then debrided and excised any necrotic tissue and then irrigated with approximately 500 mL normal saline. I then closed partially the distal incision with 4-0 nylon in a horizontal mattress fashion and packed it with quarter inch iodoform gauze leaving a tail out, then dressed with Adaptic, 4 x 4s, cast padding, and Jai wrap. He was awakened and taken to recovery in stable condition. BLOOD LOSS: Minimal. COMPLICATIONS: None. TRANSINT:[id number] Voice Confirmation ID: [id number] DOCUMENT ID: [id number] AMBROSIO ZHONG DO at 0820 CC: [id number] DICTATION DATE: 05/24/21 1752 CHAIN TESTING MACHINE OPERATOR: 05/24/21 2334 [facility] 05/24/21 [address] [place] [address]
== END 2021-05-24 18:47 | disposition home or self-care (01) ==
LOC: D.OPS 10:50
PROVIDERS: Anesthesiology; ATTEND Orthopaedic Surgery
DX: L02.612 Cutaneous abscess of left foot (principal); J44.9 Chronic obstructive pulmonary disease, unspecified; N40.0 Benign prostatic hyperplasia without lower urinary tract symptoms; I10 Essential (primary) hypertension; E78.5 Hyperlipidemia, unspecified; M79.672 Pain in left foot